=== PATIENT | male | born 1930 | race Caucasian/White ===

== ENCOUNTER 2017-10-02 16:18 | Emergency (ER) | payer MEDICARE, OTHER ==
--- NOTE | 2017-10-02 16:56 | EDM.PDOC ---
ED HPI GENERAL MEDICAL PROBLEM - General Chief Complaint: Trauma Stated Complaint: [id number] FELL-CUT HIS HEAD AND NOSE Time Seen by Provider: 10/02/17 16:45 Source of Information: Reports: Patient, RN, RN Notes Reviewed History Limitations: Reports: No Limitations - History of Present Illness INITIAL COMMENTS - FREE TEXT/NARRATIVE: Pt presents to the ER with c/o head and neck pain after a fall. Pt states he tripped, fell forward, and hit his head on an iron bar. He is unsure of whether or not he lost consciousness. Pt c/o cervical neck pain 03/05. Denies N/V/D. Denies numbness or tingling. Denies SOB or chest pain. Admits to being able to move all extremities. Onset: Today, Sudden Duration: Constant Location: Reports: Head, Neck Quality: Reports: Throbbing Severity: Severe Improves with: Reports: None Worsens with: Reports: Movement Associated Symptoms: Reports: Headaches - Related Data Allergies Allergy/AdvReac Type Severity Reaction Status Date / Time No Known Allergies Allergy Verified 10/19/16 14:38 Home Meds: Home Meds Aspirin 325 mg PO DAILY 10/19/16 [History] Metoprolol Succinate [Toprol Xl] 12.5 mg PO DAILY 10/19/16 [History] Multivitamin with Minerals [Multiple Vitamin] 1 tab PO DAILY 10/19/16 [History] Ramipril 5 mg PO BEDTIME 10/19/16 [History] atorvaSTATin [Lipitor] 20 mg PO BEDTIME 10/19/16 [History] Review of Systems - Review of Systems Review Of Systems: ROS reveals no pertinent complaints other than HPI. ED EXAM, GENERAL - Physical Exam Exam: See Below Exam Limited By: No Limitations General Appearance: Alert, WD/WN, Mild Distress Eye Exam: Bilateral Eye: EOMI, Normal Inspection, PERRL (6 brisk) Ears: Normal External Exam, Hearing Grossly Normal Nose: Normal Inspection, Other (small cut on the bridge of the nose. ) Throat/Mouth: Normal Inspection, Normal Voice, No Airway Compromise Head: Facial Swelling, Facial Tenderness (Forehead hematoma) Neck: Normal Inspection, Limited Range of Motion, Tender Lateral, Tender Midline Respiratory/Chest: No Respiratory Distress, No Accessory Muscle Use, Chest Non- Tender, Decreased Breath Sounds (right side) Cardiovascular: Normal Peripheral Pulses, Regular Rate, Rhythm, No Edema, No Gallop, No JVD, No Murmur, No Rub Peripheral Pulses: 2+: Radial (L), Radial (R), Dorsalis Pedis (L), Dorsalis Pedis (R) GI/Abdominal: Normal Bowel Sounds, Soft, Non-Tender (Male) Exam: Deferred Rectal (Males) Exam: Deferred Back Exam: Normal Inspection, Full Range of Motion Extremities: Normal Inspection, Normal Range of Motion, Non-Tender, No Pedal Edema, Normal Capillary Refill Neurological: Alert, Oriented, CN II-XII Intact, Normal Cognition, Normal Gait, Normal Reflexes, No Motor/Sensory Deficits Psychiatric: Normal Affect, Normal Mood Skin Exam: Warm, Dry, Intact, Normal Color, No Rash Lymphatic: No Adenopathy Course - Orders/Labs/Meds Labs: Laboratory Tests 10/02/17 10/02/17 10/02/17 Range/Units 16:50 16:50 16:50 WBC 5.8 (5.0-10.0) 10^3/uL RBC 4.35 L (4.6-6.2) 10^6/uL Hgb 13.8 L (14.0-18.0) g/dL Hct 41.8 (40.0-54.0) % MCV 96.1 (80-100) fL MCH 31.7 (27.0-34.0) pg MCHC 33.0 (33.0-35.0) g/dL Plt Count 163 (150-450) 10^3/uL Neut % (Auto) 49.9 (42.2-75.2) % Lymph % (Auto) 37.5 (20.5-50.1) % Stearns % (Auto) 8.9 H (2-8) % Eos % (Auto) 3.4 H (1.0-3.0) % Baso % (Auto) 0.3 (0.0-1.0) % PT 9.1 (9.0-12.0) SEC INR 0.9 (0.9-1.2) Sodium 139 (135-145) mmol/L Potassium 3.7 (3.6-5.0) mmol/L Chloride 106 (101-111) mmol/L Carbon Dioxide 27.0 (21.0-31.0) mmol/L Anion Gap 9.7 BUN 16 (7-18) mg/dL Creatinine 0.9 (0.6-1.3) mg/dL Est Cr Clr Drug Dosing TNP Estimated GFR (MDRD) > 60 BUN/Creatinine Ratio 17.77 Glucose 122 H (74-105) mg/dL Calcium 9.0 (8.4-10.2) mg/dl Total Bilirubin 1.5 H (0.2-1.0) mg/dL AST 23 (10-42) IU/L ALT 19 (10-60) IU/L Alkaline Phosphatase 62 (42-121) IU/L Total Protein 6.9 (6.7-8.2) g/dl Albumin 4.0 (3.2-5.5) g/dl Globulin 2.9 Albumin/Globulin Ratio 1.38 Urine Color (YELLOW) Urine Appearance (CLEAR) Urine pH (5.0-9.0) Ur Specific Mary Alice (1.005-1.030) Urine Protein (NEGATIVE) Urine Glucose (UA) (NEGATIVE) Urine Ketones (NEGATIVE) Urine Occult Blood (NEGATIVE) Urine Nitrite (NEGATIVE) Urine Bilirubin (NEGATIVE) Urine Urobilinogen (0.2-1.0) mg/dL Ur Leukocyte Esterase (NEGATIVE) Urine RBC /HPF Urine WBC (0-5/HPF) /HPF Ur Epithelial Cells /HPF Urine Bacteria (0-FEW/HPF) /HPF Urine Opiates Screen (NEGATIVE) Ur Oxycodone Screen (NEGATIVE) Urine Methadone Screen (NEGATIVE) Ur Barbiturates Screen (NEGATIVE) U Tricyclic Antidepress (NEGATIVE) Ur Phencyclidine Scrn (NEGATIVE) Ur Amphetamine Screen (NEGATIVE) U Methamphetamines Scrn (NEGATIVE) Urine MDMA Screen (NEGATIVE) U Benzodiazepines Scrn (NEGATIVE) Urine Cocaine Screen (NEGATIVE) U Marijuana (THC) Screen (NEGATIVE) Ethyl Alcohol < 5 mg/dL 10/02/17 10/02/17 Range/Units 18:47 18:47 WBC (5.0-10.0) 10^3/uL RBC (4.6-6.2) 10^6/uL Hgb (14.0-18.0) g/dL Hct (40.0-54.0) % MCV (80-100) fL MCH (27.0-34.0) pg MCHC (33.0-35.0) g/dL Plt Count (150-450) 10^3/uL Neut % (Auto) (42.2-75.2) % Lymph % (Auto) (20.5-50.1) % Stearns % (Auto) (2-8) % Eos % (Auto) (1.0-3.0) % Baso % (Auto) (0.0-1.0) % PT (9.0-12.0) SEC INR (0.9-1.2) Sodium (135-145) mmol/L Potassium (3.6-5.0) mmol/L Chloride (101-111) mmol/L Carbon Dioxide (21.0-31.0) mmol/L Anion Gap BUN (7-18) mg/dL Creatinine (0.6-1.3) mg/dL Est Cr Clr Drug Dosing Estimated GFR (MDRD) BUN/Creatinine Ratio Glucose (74-105) mg/dL Calcium (8.4-10.2) mg/dl Total Bilirubin (0.2-1.0) mg/dL AST (10-42) IU/L ALT (10-60) IU/L Alkaline Phosphatase (42-121) IU/L Total Protein (6.7-8.2) g/dl Albumin (3.2-5.5) g/dl Globulin Albumin/Globulin Ratio Urine Color Yellow (YELLOW) Urine Appearance Clear (CLEAR) Urine pH 7.0 (5.0-9.0) Ur Specific Mary Alice 1.020 (1.005-1.030) Urine Protein Negative (NEGATIVE) Urine Glucose (UA) Negative (NEGATIVE) Urine Ketones Negative (NEGATIVE) Urine Occult Blood Negative (NEGATIVE) Urine Nitrite Negative (NEGATIVE) Urine Bilirubin Negative (NEGATIVE) Urine Urobilinogen 1.0 (0.2-1.0) mg/dL Ur Leukocyte Esterase Negative (NEGATIVE) Urine RBC 0-5 /HPF Urine WBC 0-5 (0-5/HPF) /HPF Ur Epithelial Cells Occasional /HPF Urine Bacteria Rare (0-FEW/HPF) /HPF Urine Opiates Screen Positive H (NEGATIVE) Ur Oxycodone Screen Negative (NEGATIVE) Urine Methadone Screen Negative (NEGATIVE) Ur Barbiturates Screen Negative (NEGATIVE) U Tricyclic Antidepress Negative (NEGATIVE) Ur Phencyclidine Scrn Negative (NEGATIVE) Ur Amphetamine Screen Negative (NEGATIVE) U Methamphetamines Scrn Negative (NEGATIVE) Urine MDMA Screen Negative (NEGATIVE) U Benzodiazepines Scrn Positive H (NEGATIVE) Urine Cocaine Screen Negative (NEGATIVE) U Marijuana (THC) Screen Negative (NEGATIVE) Ethyl Alcohol mg/dL Meds: Medications Discontinued Medications Generic Name Dose Route Start Last Admin Trade Name Reyna PRN Reason Stop Dose Admin Morphine Sulfate 2 mg 10/02/17 17:51 Morphine IVPUSH 10/02/17 17:52 ONETIME ONE - Radiology Interpretation Free Text/Narrative:: Head CT: Mild left frontal scalp soft tissue swelling Mild white matter hypoattenuation 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 There also acute fractures with mild displacement involving the right and left posterior arch of C1. Recommend CTA neck to assess for arterial injury. Minimally displaced fracture deformity of the posterior aspect of the left first rib which may be chronic. See Rad report Departure - Departure Time of Disposition: 20:32 Disposition: DC/Tfer to Acute Hospital 02 Condition: Fair Clinical Impression: Cervical spine fracture Qualifiers: Encounter type: initial encounter Cervical vertebra fracture level: unspecified cervical vertebra Fracture type: closed Qualified Code(s): S12.9XXA - Fracture of neck, unspecified, initial encounter - Discharge Information Referrals: Mustapha Villeda MD [Primary Care Provider] - Forms: ED Department Discharge, Interfacility Transfer JARROD
[2017-10-02 17:18] LABS: CHLORIDE,CL 106 mmol/L (101-111); SODIUM,NA 139 mmol/L (135-145)
[2017-10-02] MEDS ORDERED: Morphine 2 MG/ML Syringe IVPUSH ONE (17:51)
== END 2017-10-02 19:03 ==
LOC: DL.ED 16:18
DX: S12.9XXA Fracture of neck, unspecified, initial encounter (principal); Z79.82 Long term (current) use of aspirin
CPT/HCPCS: 36415; 70450; 72125; 80053; 80305; 81001; 85025; 85610; 96374; 99285; G0480; J2270

== ENCOUNTER 2017-10-08 14:22 | Inpatient (IN) | payer MEDICARE, OTHER ==
[2017-10-08] MEDS ORDERED: Ondansetron 4 MG Tab.DIS PO PRN (16:35)
[2017-10-08] MEDS ORDERED: Bisacodyl 5 MG Tab PO PRN (16:35)
[2017-10-08] MEDS ORDERED: Morphine 2 MG/ML Syringe IVPUSH PRN (16:35)
[2017-10-08] MEDS ORDERED: Magnesium Hydroxide 400 MG/5 ML Susp 30 ML Cup PO PRN (16:35)
[2017-10-08] MEDS ORDERED: Docusate Sodium 100 MG Cap PO PRN (16:35)
[2017-10-08] MEDS ORDERED: Scopolamine 1.5 MG Transdermal Patch TRDERM PRN (16:44)
[2017-10-08] MEDS: Fluticasone Propionate Nasal Spray 16 GM Bottle NASBOTH SCH (17:44)
[2017-10-08] MEDS: oxyCODONE 5 MG Tab PO PRN (17:45)
--- NOTE | 2017-10-08 22:45 | HP ---
CHIEF COMPLAINT: The patient with C1-C2 fracture requiring admission to swing bed for continued physical therapy and occupational therapy. HISTORY OF PRESENTING ILLNESS: Mr. Jerome Fraire is an 87-year-old male with medical history significant for hypertension, hyperlipidemia, coronary disease, status post coronary artery bypass graft, history of chronic neck pain, was admitted to [facility] on October 02, 2017 with complaints of having a fall. It happened while patient was walking forward, he tripped on a forklift nabil falling forward. He hit his nose and forehead on the other nabil and kinked his head backward. He was initially evaluated at [facility] and got transferred to [facility] Trauma Service. While there, the patient was noted to have a fracture involving the C2 and C1. His head CT was negative. He was put in a collar. He was also evaluated by Neurosurgery while there and was noted to have a complex anterior posterior ring C1 fracture as well as a C2 fracture with some slight displacement and there was questionable C3 lamina fracture also. The patient was evaluated by Physical Therapy and Occupational therapy while there, and he was also evaluated by rehab, and then got transferred here for further evaluation and treatment. At this time, the patient continues to have the C-collar in place. He complains of pain to the posterior neck. He grades the pain as 4 to 5/10 in intensity, which gets aggravated on movement, relieved with pain medication, nonradiating type of pain, sharp in nature, not associated with nausea or vomiting. Denies any chest pains. No shortness of breath. The patient denies any tingling or numbness to his upper extremities. He denies any increasing weakness to his upper extremities. He is able to ambulate well. He denies any changes in the vision at this time. The patient denied any history of chest pains on exertion. No history of dyspnea on exertion. No history of orthopnea or paroxysmal nocturnal dyspnea. The patient denied any history of hematemesis, hematochezia, or melenic stools. Normal bowel and bladder habits otherwise. REVIEW OF SYSTEMS: A complete review of system including skin, ear, nose, and throat, cardiovascular system, respiratory system, gastrointestinal system, genitourinary system, hematology, oncology, neurology, allergy, immunology, constitutional were all evaluated and were negative except for the above-said notes. PAST MEDICAL HISTORY: Significant for: 1. Hypertension. 2. Hyperlipidemia. 3. Coronary artery disease, status post coronary artery bypass graft. 4. 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 5. Abdominal aortic aneurysm, status post repair. PAST SURGICAL HISTORY: Significant for: 1. Cystourethroscopy. 2. Coronary artery bypass graft. 3. Abdominal aortic aneurysm repair, endovascular. 4. Cataract removal. 5. Cholecystectomy. FAMILY HISTORY: Nonsignificant SOCIAL HISTORY: The patient had history of smoking in the past, but quit smoking since 1979. Chronic history of alcohol use. He drinks at least 1 beer at his dinner. ALLERGIES: The patient is noted to have intolerance to Ativan where he has hypersomnolence from Ativan. MEDICATIONS: Up on discharge from [facility]: 1. Oxycodone 5 mg every 4 hours as needed for pain. 2. Aspirin 325 mg daily. 3. Lipitor 40 mg daily. 4. Ramipril 5 mg nightly. 5. Metoprolol-XL 12.5 mg nightly. 6. Medrol Dosepak from 16 to 12 to 8 to 4 mg tapered dose. 7. Multivitamin tablet once daily. 8. Vitamin D with calcium. PHYSICAL EXAMINATION: Vital Signs: Pulse of 99.4, blood pressure of 126/73, heart rate of 77, respiratory rate of 20, saturating 94% on room air. General Appearance: The patient is well oriented to time, place, and person. Follows commands spontaneously. The patient has a soft collar in place. Cardiovascular System: S1, S2 heard with normal intensity. No gallops. Respiratory System: Clear to auscultation bilaterally. No wheeze. Mild crepitations at the bases. Abdomen: Soft. Bowel sounds positive. Nontender. No rigidity. No guarding. No rebound tenderness. Extremities: No edema in bilateral lower extremities. Neurology: No gross focal neurological deficits. LABORATORY DATA: No new labs ordered for today. Labs from 10/06, shows sodium of 139, potassium 4.1, chloride 107, bicarb 25.9, creatinine 0.9, glucose is 221. AST 16, ALT 19. WBC 12, hemoglobin 13.8, hematocrit 41.1, platelet count 176. CT scan of the cervical spine on October 03, 2017, showed stable appearance of an acute type 2 dens fracture with 2 mm posterior displacement of the dens to the base of C2. Stable oblique fracture of the left anterior arch of C2, and stable fracture of the posterior arch of C1, both on the right and left sides. No significant canal compromise. ASSESSMENT: 1. C1 and C2 fracture requiring collar placement to the cervical spine. 2. Hypertension. 3. Hyperlipidemia. 4. Coronary artery disease, status post coronary artery bypass graft. 5. Abdominal aortic aneurysm, status post repair. 6. Hyperlipidemia. PLAN: 1. C1 and C2 fracture. The patient is noted to have a C1 and C2 fracture and was evaluated by Neurosurgery at [facility]. He is currently in soft collar and is recommended to continue with soft collar. We will have PT, OT evaluate and treat the patient. The patient does not have any focal neurological deficit at this time. We will closely monitor. He is also noted to be on Medrol Dosepak. We will continue the same. 2. Hypertension. The patient is noted to be on ramipril and metoprolol. We will continue with the current antihypertensive medications. We will dose adjust medications as needed. 3. DVT prophylaxis. We will continue with Lovenox for DVT prophylaxis. 4. We will have Physical Therapy and Occupational Therapy evaluate and treat the patient. 5. Reviewed the labs and medications. Reviewed the old charts and charts obtained from [facility]. 6. Code status. The patient wants to be DNR, DNI. [facility] /[id number]
[2017-10-08] MEDS: Metoprolol Succinate 25 MG Tab.ER PO SCH (23:03)
[2017-10-08] MEDS: Ramipril 5 MG Cap PO SCH (23:04)
[2017-10-08] MEDS: atorvaSTATin 20 MG Tab PO SCH (23:04)
[2017-10-08] MEDS: Aspirin 325 MG Tab PO SCH (23:04)
[2017-10-08] MEDS: Acetaminophen 325 MG Tab PO PRN (23:09)
[2017-10-08] MEDS: Zolpidem 5 MG Tab PO PRN (23:26)
[2017-10-09] MEDS: Acetaminophen 325 MG Tab PO PRN ×2 (05:53→10:35)
[2017-10-09 07:05] LABS: CHLORIDE,CL 102 mmol/L (101-111); SODIUM,NA 139 mmol/L (135-145)
[2017-10-09] MEDS: Cholecalciferol (Vitamin D3) 400 Unit Tab PO SCH (09:22)
[2017-10-09] MEDS: Enoxaparin 40 MG/0.4 ML Syringe SUBCUT SCH (09:22)
[2017-10-09] MEDS: Lutein/Minerals/Vit A,C & E Tab PO SCH (09:22)
[2017-10-09] MEDS: Fluticasone Propionate Nasal Spray 16 GM Bottle NASBOTH SCH (09:23)
[2017-10-09] MEDS ORDERED: methylPREDNISolone 4 MG Tab 21 Tab/Dosepak PO ONE (10:45)
[2017-10-09] MEDS: oxyCODONE 5 MG Tab PO PRN ×2 (11:19→19:57)
[2017-10-09] MEDS: traMADol 50 MG Tab PO PRN (15:53)
[2017-10-09] MEDS: Ramipril 5 MG Cap PO SCH (22:19)
[2017-10-09] MEDS: atorvaSTATin 20 MG Tab PO SCH (22:19)
[2017-10-09] MEDS: Aspirin 325 MG Tab PO SCH (22:19)
[2017-10-09] MEDS: Metoprolol Succinate 25 MG Tab.ER PO SCH (22:21)
[2017-10-09] MEDS: Zolpidem 5 MG Tab PO PRN (22:22)
[2017-10-10] MEDS: oxyCODONE 5 MG Tab PO PRN ×3 (02:58→20:44)
[2017-10-10] MEDS ORDERED: methylPREDNISolone 4 MG Tab 21 Tab/Dosepak PO ONE (08:00)
[2017-10-10] MEDS: Lutein/Minerals/Vit A,C & E Tab PO SCH (08:12)
[2017-10-10] MEDS: Cholecalciferol (Vitamin D3) 400 Unit Tab PO SCH (08:13)
[2017-10-10] MEDS: Fluticasone Propionate Nasal Spray 16 GM Bottle NASBOTH SCH (08:14)
[2017-10-10] MEDS: Enoxaparin 40 MG/0.4 ML Syringe SUBCUT SCH (08:14)
[2017-10-10] MEDS: Acetaminophen 325 MG Tab PO PRN (13:27)
[2017-10-10] MEDS: traMADol 50 MG Tab PO PRN (17:36)
[2017-10-10] MEDS: Aspirin 325 MG Tab PO SCH (20:45)
[2017-10-10] MEDS: Metoprolol Succinate 25 MG Tab.ER PO SCH (20:45)
[2017-10-10] MEDS: atorvaSTATin 20 MG Tab PO SCH (20:46)
[2017-10-10] MEDS: Ramipril 5 MG Cap PO SCH (20:46)
[2017-10-10] MEDS: Zolpidem 5 MG Tab PO PRN (22:17)
[2017-10-11] MEDS: oxyCODONE 5 MG Tab PO PRN ×3 (06:05→16:15)
[2017-10-11] MEDS ORDERED: methylPREDNISolone 4 MG Tab 21 Tab/Dosepak PO ONE (08:00)
[2017-10-11] MEDS: Cholecalciferol (Vitamin D3) 400 Unit Tab PO SCH (08:57)
[2017-10-11] MEDS: Lutein/Minerals/Vit A,C & E Tab PO SCH (08:58)
[2017-10-11] MEDS: Enoxaparin 40 MG/0.4 ML Syringe SUBCUT SCH (08:58)
[2017-10-11] MEDS: Fluticasone Propionate Nasal Spray 16 GM Bottle NASBOTH SCH (09:04)
[2017-10-11] MEDS: Acetaminophen 325 MG Tab PO SCH ×2 (14:15→21:17)
[2017-10-11] MEDS: Metoprolol Succinate 25 MG Tab.ER PO SCH (21:15)
[2017-10-11] MEDS: Aspirin 325 MG Tab PO SCH (21:18)
[2017-10-11] MEDS: Ramipril 5 MG Cap PO SCH (21:18)
[2017-10-11] MEDS: atorvaSTATin 20 MG Tab PO SCH (21:19)
[2017-10-11] MEDS: Zolpidem 5 MG Tab PO PRN (22:37)
[2017-10-12] MEDS ORDERED: methylPREDNISolone 4 MG Tab 21 Tab/Dosepak PO ONE (08:00)
[2017-10-12] MEDS: Fluticasone Propionate Nasal Spray 16 GM Bottle NASBOTH SCH (09:17)
[2017-10-12] MEDS: Acetaminophen 325 MG Tab PO SCH ×3 (09:18→22:25)
[2017-10-12] MEDS: Cholecalciferol (Vitamin D3) 400 Unit Tab PO SCH (09:19)
[2017-10-12] MEDS: Lutein/Minerals/Vit A,C & E Tab PO SCH (09:20)
[2017-10-12] MEDS: Enoxaparin 40 MG/0.4 ML Syringe SUBCUT SCH (09:20)
[2017-10-12] MEDS: atorvaSTATin 20 MG Tab PO SCH (22:19)
[2017-10-12] MEDS: Aspirin 325 MG Tab PO SCH (22:19)
[2017-10-12] MEDS: Metoprolol Succinate 25 MG Tab.ER PO SCH (22:22)
[2017-10-12] MEDS: Ramipril 5 MG Cap PO SCH (22:24)
[2017-10-13] MEDS: Lutein/Minerals/Vit A,C & E Tab PO SCH (09:09)
[2017-10-13] MEDS: Enoxaparin 40 MG/0.4 ML Syringe SUBCUT SCH (09:09)
[2017-10-13] MEDS: Fluticasone Propionate Nasal Spray 16 GM Bottle NASBOTH SCH (09:09)
[2017-10-13] MEDS: Acetaminophen 325 MG Tab PO SCH ×3 (09:10→20:32)
[2017-10-13] MEDS: Cholecalciferol (Vitamin D3) 400 Unit Tab PO SCH (09:12)
[2017-10-13] MEDS: Ramipril 5 MG Cap PO SCH (20:34)
[2017-10-13] MEDS: atorvaSTATin 20 MG Tab PO SCH (20:34)
[2017-10-13] MEDS: Metoprolol Succinate 25 MG Tab.ER PO SCH (20:35)
[2017-10-13] MEDS: Aspirin 325 MG Tab PO SCH (20:37)
[2017-10-14 06:56] LABS: CHLORIDE,CL 103 mmol/L (101-111); SODIUM,NA 138 mmol/L (135-145)
[2017-10-14] MEDS: Fluticasone Propionate Nasal Spray 16 GM Bottle NASBOTH SCH (08:48)
[2017-10-14] MEDS: Lutein/Minerals/Vit A,C & E Tab PO SCH (08:49)
[2017-10-14] MEDS: Acetaminophen 325 MG Tab PO SCH ×3 (08:49→21:28)
[2017-10-14] MEDS: Cholecalciferol (Vitamin D3) 400 Unit Tab PO SCH (08:50)
[2017-10-14] MEDS: Enoxaparin 40 MG/0.4 ML Syringe SUBCUT SCH (08:56)
[2017-10-14] MEDS: Ramipril 5 MG Cap PO SCH (21:25)
[2017-10-14] MEDS: Metoprolol Succinate 25 MG Tab.ER PO SCH (21:26)
[2017-10-14] MEDS: Aspirin 325 MG Tab PO SCH (21:27)
[2017-10-14] MEDS: atorvaSTATin 20 MG Tab PO SCH (21:27)
[2017-10-15] MEDS: Acetaminophen 325 MG Tab PO SCH ×3 (09:32→21:11)
[2017-10-15] MEDS: Enoxaparin 40 MG/0.4 ML Syringe SUBCUT SCH (09:33)
[2017-10-15] MEDS: Lutein/Minerals/Vit A,C & E Tab PO SCH (09:33)
[2017-10-15] MEDS: Cholecalciferol (Vitamin D3) 400 Unit Tab PO SCH (09:33)
[2017-10-15] MEDS: Fluticasone Propionate Nasal Spray 16 GM Bottle NASBOTH SCH (09:35)
--- NOTE | 2017-10-15 10:15 | PCM.PN ---
- General Info Date of Service: 10/15/17 Admission Dx/Problem (Free Text): Weakness, pain, cervical spine injury Subjective Update: The patient is a 87-year-old gentleman with a history of coronary artery disease , hypertension, dyslipidemia. The patient fell and was noted to have C-spine fracture in involving C1-2-1 3. He was hospitalized at [facility]. Subsequently discharged to swing bed for further physical and occupational therapy. In the past 2 days the pain has been well controlled. The patient did not tolerate the hard cervical collar and a soft collar is being used. He has been often walking around. On Saturday he had a home visit with family. No complains of chest pain, shortness of breath, nausea, vomiting. - Review of Systems General: Reports: Weakness. Denies: Fever Pulmonary: Denies: Shortness of Breath Cardiovascular: Denies: Chest Pain Gastrointestinal: Denies: Abdominal Pain Genitourinary: Denies: Dysuria - Patient Data Vitals - Most Recent: Last Vital Signs Temp 36.5 C 10/15/17 07:40 Pulse 68 10/15/17 07:40 Resp 20 10/15/17 07:40 BP 116/86 10/15/17 07:40 Pulse Ox 93 L 10/15/17 07:40 Weight - Most Recent: 90.446 kg I&O - Last 24 Hours: Intake & Output 10/14/17 10/15/17 10/15/17 22:59 06:59 14:59 Intake Total 100 325 Balance 100 325 Med Orders - Current: Current Medications Acetaminophen (Tylenol) 650 mg PO Q4H PRN PRN Reason: Pain (moderate 4-6) Last Admin: 10/10/17 13:27 Dose: 650 mg Acetaminophen (Tylenol) 650 mg PO TID [facility] Last Admin: 10/15/17 09:32 Dose: 650 mg Aspirin (Aspirin) 325 mg PO BEDTIME [facility] Last Admin: 10/14/17 21:27 Dose: 325 mg Atorvastatin Calcium (Lipitor) 40 mg PO BEDTIME [facility] Last Admin: 10/14/17 21:27 Dose: 40 mg Bisacodyl (Dulcolax) 5 mg PO DAILY PRN PRN Reason: Constipation Cholecalciferol (Vitamin D3) 1,000 units PO DAILY [facility] Last Admin: 10/15/17 09:33 Dose: 1,000 units Docusate Sodium (Colace) 100 mg PO BID PRN PRN Reason: Constipation Enoxaparin Sodium (Lovenox) 40 mg SUBCUT DAILY [facility] Last Admin: 10/15/17 09:33 Dose: 40 mg Fluticasone Propionate (Flonase) 0 gm NASBOTH DAILY [facility] Last Admin: 10/15/17 09:35 Dose: 1 spray Magnesium Hydroxide (Milk Of Magnesia) 30 ml PO Q12H PRN PRN Reason: Constipation Metoprolol Succinate (Toprol Xl) 12.5 mg PO BEDTIME [facility] Last Admin: 10/14/17 21:26 Dose: 12.5 mg Multivitamins/Minerals (I-Mayito) 1 each PO DAILY [facility] Last Admin: 10/15/17 09:33 Dose: 1 each Ondansetron HCl (Zofran Odt) 4 mg PO Q4H PRN PRN Reason: nausea, able to take PO Oxycodone HCl (Oxycodone) 5 mg PO Q4H PRN PRN Reason: Pain (severe 7-10) Last Admin: 10/11/17 16:15 Dose: 5 mg Ramipril (Altace) 5 mg PO BEDTIME [facility] Last Admin: 10/14/17 21:25 Dose: 5 mg Scopolamine (Transderm-Scop) 1.5 mg TRDERM Q72H PRN PRN Reason: SECRETIONS Last Admin: 10/08/17 17:47 Dose: 1.5 mg Tramadol HCl (Ultram) 50 mg PO Q6H PRN PRN Reason: Pain (moderate 4-6) Last Admin: 10/10/17 17:36 Dose: 50 mg Zolpidem Tartrate (Ambien) 5 mg PO BEDTIME PRN PRN Reason: Sleep Last Admin: 10/11/17 22:37 Dose: 5 mg Discontinued Medications Methylprednisolone (Medrol) 16 mg PO ONETIME ONE Stop: 10/09/17 10:46 Last Admin: 10/09/17 10:59 Dose: 4 tab Methylprednisolone (Medrol) 12 mg PO ONETIME ONE Stop: 10/10/17 08:01 Last Admin: 10/10/17 08:11 Dose: 12 mg Methylprednisolone (Medrol) 8 mg PO ONETIME ONE Stop: 10/11/17 08:01 Last Admin: 10/11/17 09:11 Dose: 8 mg Methylprednisolone (Medrol) 4 mg PO ONETIME ONE Stop: 10/12/17 08:01 Last Admin: 10/12/17 09:16 Dose: 4 mg Morphine Sulfate (Morphine) 2 mg IVPUSH Q2H PRN PRN Reason: Pain (severe 7-10) - Exam General: Alert, Oriented Neck: Other (With soft collar) Lungs: Clear to Auscultation, Normal Respiratory Effort Cardiovascular: Regular Rate, Regular Rhythm GI/Abdominal Exam: Normal Bowel Sounds, Soft, Non-Tender Extremities: No Pedal Edema - Problem List & Annotations (1) Cervical spine fracture SNOMED Code(s): 583782188 Code(s): S12.9XXA - FRACTURE OF NECK, UNSPECIFIED, INITIAL ENCOUNTER Status : Acute Current Visit: No Qualifiers: Encounter type: initial encounter Cervical vertebra fracture level: unspecified cervical vertebra Fracture type: closed Qualified Code(s): S12.9XXA - Fracture of neck, unspecified, initial encounter - Problem List Review Problem List Initiated/Reviewed/Updated: Yes - Plan Plan:: 87 years old with a history of hypertension, dyslipidemia, coronary artery disease, bypass surgery. #1 status post cervical spine fracture due to traumatic injury. Pain appears well controlled. He is working with physical and occupational therapy. No significant neurological deficit. #2 hypertension on ramipril and metoprolol #3 dyslipidemia Treat with Lipitor #4 coronary artery disease Stable Treat with aspirin, Lipitor, ramipril, metoprolol #5 discharge plans Likely discharge home this week
[2017-10-15] MEDS: Ramipril 5 MG Cap PO SCH (21:08)
[2017-10-15] MEDS: atorvaSTATin 20 MG Tab PO SCH (21:10)
[2017-10-15] MEDS: Metoprolol Succinate 25 MG Tab.ER PO SCH (21:10)
[2017-10-15] MEDS: Aspirin 325 MG Tab PO SCH (21:13)
[2017-10-16] MEDS: Cholecalciferol (Vitamin D3) 400 Unit Tab PO SCH (08:24)
[2017-10-16] MEDS: Acetaminophen 325 MG Tab PO SCH (08:25)
[2017-10-16] MEDS: Lutein/Minerals/Vit A,C & E Tab PO SCH (08:26)
[2017-10-16] MEDS: Fluticasone Propionate Nasal Spray 16 GM Bottle NASBOTH SCH (08:26)
[2017-10-16] MEDS: Enoxaparin 40 MG/0.4 ML Syringe SUBCUT SCH (08:26)
--- NOTE | 2017-10-16 10:55 | PCM.DCSUM1 ---
Discharge Summary - Hospital Course Free Text/Narrative:: 87 years old with a history of hypertension, dyslipidemia, coronary artery disease, bypass surgery. The patient fell and sustained cervical spine fracture C1 and C2. He was treated at [facility] and subsequently transferred to the swing bed for physical and occupational therapy #1 status post cervical spine fracture due to traumatic injury. Pain appears well controlled. No significant neurological deficit. Avoid narcotic analgesics as requested by family #2 hypertension on ramipril and metoprolol #3 dyslipidemia Treat with Lipitor #4 coronary artery disease Stable Treat with aspirin, Lipitor, ramipril, metoprolol - Discharge Data Discharge Date: 10/16/17 Discharge Disposition: Home, Self-Care 01 Condition: Good - Patient Summary/Data Consults: Consultations 10/08/17 16:35 OT Evaluation and Treatment [CONS] Routine PT Evaluation and Treatment [CONS] Routine - Patient Instructions Activity: As Tolerated Showering/Bathing: May Shower, May Shower in 3 Days Notify Provider of: Fever, Increased Pain, Swelling and Redness - Discharge Plan Prescriptions/Med Rec: Acetaminophen [Tylenol] 650 mg PO TID #50 tablet Fluticasone Propionate [Flonase] 0 gm NASBOTH DAILY #1 bottle Home Medications: Home Meds Aspirin 325 mg PO BEDTIME 10/19/16 [History] Metoprolol Succinate [Toprol Xl] 12.5 mg PO BEDTIME 10/19/16 [History] Ramipril 5 mg PO BEDTIME 10/19/16 [History] Cholecalciferol (Vitamin D3) [Vitamin D3] 1,000 units PO DAILY 10/08/17 [History ] Lutein/Minerals/Vit A,C & E [Ocuvite] 1 tab PO DAILY 10/08/17 [History] atorvaSTATin [Lipitor] 40 mg PO BEDTIME 10/08/17 [History] Acetaminophen [Tylenol] 650 mg PO TID #50 tablet 10/16/17 [Rx] Fluticasone Propionate [Flonase] 0 gm NASBOTH DAILY #1 bottle 10/16/17 [Rx] Patient Handouts: Cervical Spine Fracture, Stable - General Info Admission Dx/Problem (Free Text: Weakness, pain, cervical spine injury - Review of Systems General: Reports: No Symptoms HEENT: Reports: Other (Wearing a cervical collar) Pulmonary: Reports: No Symptoms Cardiovascular: Reports: No Symptoms Musculoskeletal: Reports: No Symptoms, Neck Pain Skin: Reports: No Symptoms - Patient Data Vitals - Most Recent: Last Vital Signs Temp 36.5 C 10/16/17 07:37 Pulse 64 10/16/17 07:37 Resp 20 10/16/17 07:37 BP 132/68 10/16/17 07:37 Pulse Ox 97 10/16/17 07:37 Weight - Most Recent: 87.09 kg I&O - Last 24 hours: Intake & Output 10/15/17 10/16/17 10/16/17 22:59 06:59 14:59 Intake Total 300 320 Balance 300 320 Med Orders - Current: Current Medications Acetaminophen (Tylenol) 650 mg PO Q4H PRN PRN Reason: Pain (moderate 4-6) Last Admin: 10/10/17 13:27 Dose: 650 mg Acetaminophen (Tylenol) 650 mg PO TID [facility] Last Admin: 10/16/17 08:25 Dose: 650 mg Aspirin (Aspirin) 325 mg PO BEDTIME [facility] Last Admin: 10/15/17 21:13 Dose: 325 mg Atorvastatin Calcium (Lipitor) 40 mg PO BEDTIME [facility] Last Admin: 10/15/17 21:10 Dose: 40 mg Bisacodyl (Dulcolax) 5 mg PO DAILY PRN PRN Reason: Constipation Cholecalciferol (Vitamin D3) 1,000 units PO DAILY [facility] Last Admin: 10/16/17 08:24 Dose: 1,000 units Docusate Sodium (Colace) 100 mg PO BID PRN PRN Reason: Constipation Enoxaparin Sodium (Lovenox) 40 mg SUBCUT DAILY [facility] Last Admin: 10/16/17 08:26 Dose: 40 mg Fluticasone Propionate (Flonase) 0 gm NASBOTH DAILY [facility] Last Admin: 10/16/17 08:26 Dose: 1 spray Magnesium Hydroxide (Milk Of Magnesia) 30 ml PO Q12H PRN PRN Reason: Constipation Metoprolol Succinate (Toprol Xl) 12.5 mg PO BEDTIME [facility] Last Admin: 10/15/17 21:10 Dose: 12.5 mg Multivitamins/Minerals (I-Mayito) 1 each PO DAILY [facility] Last Admin: 10/16/17 08:26 Dose: 1 each Ondansetron HCl (Zofran Odt) 4 mg PO Q4H PRN PRN Reason: nausea, able to take PO Oxycodone HCl (Oxycodone) 5 mg PO Q4H PRN PRN Reason: Pain (severe 7-10) Last Admin: 10/11/17 16:15 Dose: 5 mg Ramipril (Altace) 5 mg PO BEDTIME [facility] Last Admin: 10/15/17 21:08 Dose: 5 mg Scopolamine (Transderm-Scop) 1.5 mg TRDERM Q72H PRN PRN Reason: SECRETIONS Last Admin: 10/08/17 17:47 Dose: 1.5 mg Tramadol HCl (Ultram) 50 mg PO Q6H PRN PRN Reason: Pain (moderate 4-6) Last Admin: 10/10/17 17:36 Dose: 50 mg Zolpidem Tartrate (Ambien) 5 mg PO BEDTIME PRN PRN Reason: Sleep Last Admin: 10/11/17 22:37 Dose: 5 mg Discontinued Medications Methylprednisolone (Medrol) 16 mg PO ONETIME ONE Stop: 10/09/17 10:46 Last Admin: 10/09/17 10:59 Dose: 4 tab Methylprednisolone (Medrol) 12 mg PO ONETIME ONE Stop: 10/10/17 08:01 Last Admin: 10/10/17 08:11 Dose: 12 mg Methylprednisolone (Medrol) 8 mg PO ONETIME ONE Stop: 10/11/17 08:01 Last Admin: 10/11/17 09:11 Dose: 8 mg Methylprednisolone (Medrol) 4 mg PO ONETIME ONE Stop: 10/12/17 08:01 Last Admin: 10/12/17 09:16 Dose: 4 mg Morphine Sulfate (Morphine) 2 mg IVPUSH Q2H PRN PRN Reason: Pain (severe 7-10) - Exam General: Reports: Alert, Oriented, Cooperative Neck: Reports: Supple Lungs: Reports: Clear to Auscultation Cardiovascular: Reports: Regular Rate Skin: Reports: Warm, Dry, Intact
[2017-10-16] MEDS: traMADol 50 MG Tab PO PRN (12:27)
== END 2017-10-16 12:40 | disposition home or self-care (01) | DRG 561 ==
LOC: UNDOADMIN 14:22 → DL.MS 14:22
PROVIDERS: ADMIT Internal Medicine; ATTEND Internal Medicine
DX: S12.000D Unspecified displaced fracture of first cervical vertebra, subsequent encounter for fracture with routine healing (principal); S12.110D Anterior displaced Type II dens fracture, subsequent encounter for fracture with routine healing; W01.0XXD Fall on same level from slipping, tripping and stumbling without subsequent striking against object, subsequent encounter; I10 Essential (primary) hypertension; E78.5 Hyperlipidemia, unspecified; I25.10 Atherosclerotic heart disease of native coronary artery without angina pectoris; G89.29 Other chronic pain; M54.2 Cervicalgia; Z66 Do not resuscitate; Z95.1 Presence of aortocoronary bypass graft; Z79.899 Other long term (current) drug therapy; Z79.82 Long term (current) use of aspirin; Z98.890 Other specified postprocedural states; Z86.79 Personal history of other diseases of the circulatory system; Z87.891 Personal history of nicotine dependence; Z88.8 Allergy status to other drugs, medicaments and biological substances
CPT/HCPCS: 36415; 80048; 85025; 85027; 97110-GO; 97110-GP; 97116-GP; 97162-GP; 97165-GO; 97530-GO; 97535-GO; A9270-GY; J1650